=== PATIENT | female | born 2000 | race African-American/Black ===

== ENCOUNTER 2024-07-20 03:19 | Emergency (ER) | payer OTHER ==
[~2024-07-20] VITALS: Ht 175.3 cm; Wt 95.0 kg
[2024-07-20 03:20] VITALS: O2SAT 99
[2024-07-20 04:13] LABS: HCG SCREEN NEGATIVE
[2024-07-20 07:15] VITALS: BP 125/86; PULSE 97; RESP 16; TEMP 36.72516; O2SAT 98
== END 2024-07-20 07:35 | disposition home or self-care (01) ==
LOC: ER 03:29
DX: F10.129 Alcohol abuse with intoxication, unspecified (principal); Y90.8 Blood alcohol level of 240 mg/100 ml or more
CPT/HCPCS: 36415; 80320; 84703; 99283; G0480